=== PATIENT | male | born 1960 | race Caucasian/White ===

== ENCOUNTER → 2018-10-21 | Outpatient (CLI) | payer OTHER ==
--- NOTE | 2018-10-21 13:26 | NM ---
EXAMINATION TYPE: NM stress cardiolite complete DATE OF EXAM: 10/21/2018 COMPARISON: NONE HISTORY: Hypertension and chest pain TECHNIQUE: After the intravenous administration of 9.81 mCi Tc 99m Sestamibi - Rest images obtained 50 minutes post injection. The patient exercised using a CODIE protocol and 1 minute prior to peak exercise was injected with 24.7 mCi Tc 99m Sestamibi - Stress images obtained 10 minutes post injecti on. FINDINGS: Targeted heart rate was achieved during performance of the study. Review of stress and rest SPECT reji ges demonstrates no distinct perfusion abnormality. Gated analysis shows normal wall motion with an estimated left ventricular ejection fraction of 60 %. TID is within normal limits calculated at 1.04. IMPRESSION: No scintigraphic evidence for reversible ischemia
--- NOTE | 2018-10-22 06:54 | ECHOF ---
Referral Reason:I10 Hypertension, R07.9 Chest Pain MEASUREMENTS -------- HEIGHT: 177.8 cm WEIGHT: 98.4 kg BP: 120/78 RVIDd: 3.7 cm (< 3.3) IVSd: 1.1 cm (0.6 - 1.1) LVIDd: 5.2 cm (3.9 - 5.3) LVPWd: 1.1 cm (0.6 - 1.1) IVSs: 1.5 cm LVIDs: 3.6 cm LVPWs: 1.6 cm LA Diam: 4.0 cm (2.7 - 3.8) LAESV Index (A-L): 46.54 ml/m Ao Diam: 3.7 cm (2.0 - 3.7) AV Cusp: 2.5 cm (1.5 - 2.6) MV EXCURSION: 19.089 mm (> 18.000) MV EF SLOPE: 106 mm/s (70 - 150) EPSS: 0.4 cm AR PHT: 628 ms RAP: 5.00 mmHg RVSP: 24.97 mmHg FINDINGS -------- This was a technically adequate study. The left ventricular size is normal. There is borderline concentric left ventricular hypertrophy. Overall left ventricular systolic function is low-normal with, an EF between 50 - 55 %. The right ventricle is mild to moderately enlarged. LA is severely dilated >40 ml/m2 The right atrium is normal in size. Aortic valve is trileaflet and is mildly thickened. Trace to mild aortic regurgitation. Dawb-or-yitmkxwg mitral regurgitation is present. Mild tricuspid regurgitation present. Right ventricular systolic pressure is normal at < 35 mmHg. Trace/mild (physiologic) pulmonic regurgitation. The aortic root size is normal. Normal inferior vena cava with normal inspiratory collapse consistent with estimated right atrial pre ssure of 5 mmHg. The inferior vena cava is mildly dilated. There is a trivial pericardial effusion present. CONCLUSIONS -------- 1. This was a technically adequate study. 2. The left ventricular size is normal. 3. There is borderline concentric left ventricular hypertrophy. 4. The right ventricle is mild to moderately enlarged. 5. LA is severely dilated >40 ml/m2 6. The right atrium is normal in size. 7. Aortic valve is trileaflet and is mildly thickened. 8. Trace to mild aortic regurgitation. 9. Lclx-kw-mjfstrwv mitral regurgitation is present. 10. Mild tricuspid regurgitation present. 11. Right ventricular systolic pressure is normal at < 35 mmHg. 12. Trace/mild (physiologic) pulmonic regurgitation. 13. The aortic root size is normal. 14. Normal inferior vena cava with normal inspiratory collapse consistent with estimated right atrial pressure of 5 mmHg. 15. The inferior vena cava is mildly dilated. 16. There is a trivial pericardial effusion present. ASSEMBLER WET WASH: Ester Mccarthy RDCS
--- NOTE | 2018-10-22 10:26 | EST ---
EXERCISE STRESS AGE: 58 SEX: M HT: 71" WT: 216 PROTOCOL: Cardiolite Logan Stress Test STAGE: IV DURATION OF EXERCISE: 12:00 HEART RATE REST: 85 BLOOD PRESSURE REST: 135/91 MAXIMUM HEART RATE ACHIEVED: 176 MAXIMUM BLOOD PRESSURE: 174/68 85% MPHR: 136 100% MPHR: 160 METS: 12.3 INDICATIONS: Chest pain, hypertension. CLINICAL INFORMATION: Baseline EKG revealed normal sinus rhythm without significant ST-T changes. Patient walked for 12 minutes on a standard Logan protocol, achieved a maximum heart rate of 176 beats per minute which is more than 85% of predicted maximum. He developed some fatigue and shortness of breath. Rare isolated PVCs were noted. There was no evidence of any angina, arrhythmia or EKG changes to indicate ischemia. He had a short run of PAT during the exercise. However, in the recovery period, he had rare isolated PVCs. By EKG criteria, this is a negative stress test with excellent exercise capacity. The nuclear scan results which are more pertinent, will be reported by the radiologist. WAYNE / LEIN: [id number] /
== END | disposition home or self-care (01) ==
LOC: RADNMMAIN 07:32
PROVIDERS: ATTEND Family Medicine
DX: I08.3 Combined rheumatic disorders of mitral, aortic and tricuspid valves (principal); I31.3 Pericardial effusion (noninflammatory); R06.09 Other forms of dyspnea
CPT/HCPCS: 93017; 93306; 78452; A9500

== ENCOUNTER → 2019-08-02 | Outpatient (CLI) | payer OTHER ==
[2019-08-02 10:35] LABS: INR 1.1 (<1.2); Partial Thromboplastin Time 32.5 sec (22.0-30.0); Prothrombin Time 11.8 sec (9.0-12.0)
[2019-08-02 16:10] LABS: African American GFR (CKD) 75.2 (60.0-200.0); Albumin 4.5 g/dL (3.80-4.90); Albumin/Globulin Ratio 2.81 (1.60-3.17); Anion Gap 8.3 mmol/L (4.00-12.00); Calcium 9.5 mg/dL (8.7-10.3); Carbon Dioxide 25.7 mmol/L (21.6-31.8); Globulin 1.6 g/dL (1.6-3.3); Potassium 4.9 mmol/L (3.5-5.5); Total Bilirubin 1.6 mg/dL (0.3-1.2); Total Protein 6.1 g/dL (6.2-8.2)
== END | disposition home or self-care (01) ==
LOC: LABWHC1 09:32
PROVIDERS: ATTEND Internal Medicine
DX: Z01.810 Encounter for preprocedural cardiovascular examination (principal)
CPT/HCPCS: 36415; 80053; 85610; 85730

== ENCOUNTER → 2019-10-26 | Outpatient (CLI) | payer OTHER ==
--- NOTE | 2019-10-26 20:02 | CONS ---
CONSULTATION DATE OF SERVICE: 10/26/2019. HISTORY OF PRESENT ILLNESS/SLEEP-WAKE EVALUATION: This patient is a 59-year-old gentleman who has been evaluated in the sleep center for possible obstructive sleep apnea-hypopnea syndrome. The patient does not have a regular sleep schedule. 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 He does have problems with falling asleep. He wakes up from sleep up to 6 times with up to 6 episodes of nocturia. He does snore. Nobody ever told him about episodes of stopped breathing during sleep, although in the morning he wakes up tired. He worries about his sleep, has problems with memory, irritability, sometimes sexual dysfunction. Beresford Sleepiness Scale is significantly increased at 13. Usually he does not take naps, though. No history of hypnagogic hallucinations, sleep paralysis or cataplexy. PAST MEDICAL HISTORY: Positive for hypertension, hyperlipidemia, arterial fibrillation. PAST SURGICAL HISTORY: Tonsillectomy, right wrist surgery, right arm surgery, right shoulder surgery, defibrillation. SOCIAL HISTORY: Positive history of smoking on and off for 10 years and quit 4 years ago. Alcohol consumption occasional. REVIEW OF SYSTEMS: Multiple awakenings from sleep, sometimes sleepiness during the day. MEDICATIONS: Sotalol, , Norvasc, Zocor. FAMILY HISTORY: Hypertension, heart problems, hyperlipidemia, diabetes. PHYSICAL EXAMINATION: GENERAL: A pleasant gentleman without distress. VITAL SIGNS: BP 124/76, HR 56, RR 16, height 5 feet 9-1/2 inches, weight 230 pounds. Body mass index 33.4. Temperature 98.4, oxygen saturation at room air 96%. HEENT: PERRLA, EOMI. Evaluation of oropharynx showed tongue protrudes midline. Extremely low position of soft palate. Mallampati IV. Some restriction of nasal breathing. NECK: Supple. No JVD. Thyroid is not palpable. LUNGS: Clear to percussion and to auscultation. Good air exchange. No wheezing or rhonchi. HEART: S1, S2 regular. No murmurs, gallops or rubs. ABDOMEN: Slightly obese. EXTREMITIES: No clubbing or cyanosis. MANAGER SHELL: Awake, alert, and oriented X3. Cranial nerves 2 to 7 intact. There is no fasciculation or atrophy. noted. No focal deficits observed. IMPRESSION: 1. Snoring, multiple awakenings from sleep with nocturia, extremely low position of soft palate, wide neck at 17 inches in circumference, symptoms of excessive sleepiness with increasing Beresford Sleepiness Scale; obstructive sleep apnea- hypopnea syndrome. 2. Mild obesity; body mass index 33.4. 3. History of atrial fibrillation, status post defibrillation. Presently by auscultation sounds are regular. Heart tones regular. 4. Hypertension. 5. Hyperlipidemia. 6. Status post tonsillectomy. 7. Status post right wrist surgery. 8. Status post right arm surgery. 9. Status post right shoulder surgery. PLAN: 1. Polysomnography for evaluation of patient's breathing during sleep. 2. CPAP/BiPAP titration if sleep study confirms obstructive sleep apnea-hypopnea syndrome. 3. Preferable position during sleep on the side. 4. No driving if patient feels any sleepiness. 5. I will see patient for follow up visit to explain results of testing and following plan. Thank you very much for referring this patient for consultation. Sincerely, Luis Fernando Gil MD, PhD, FAASM Diplomat of [employer] [facility] [place] MMODL / IJN: [id number] /
== END | disposition home or self-care (01) ==
LOC: SLEEP 16:42
PROVIDERS: ATTEND Internal Medicine
DX: G47.33 Obstructive sleep apnea (adult) (pediatric) (principal); I10 Essential (primary) hypertension; E78.5 Hyperlipidemia, unspecified; E66.9 Obesity, unspecified; Z68.33 Body mass index [BMI] 33.0-33.9, adult; Z98.890 Other specified postprocedural states; Z87.891 Personal history of nicotine dependence; Z79.891 Long term (current) use of opiate analgesic; Z86.79 Personal history of other diseases of the circulatory system
CPT/HCPCS: 99211

== ENCOUNTER 2020-10-30 16:21 | Emergency (ER) | payer OTHER ==
[2020-10-30 16:29] VITALS: BP 134/85; PULSE 82; RESP 18; TEMP 98.4
[2020-10-30] MEDS ORDERED: PANTOPRAZOLE 40 MG/10 ML VIAL IVP STA (16:49)
[2020-10-30 17:24] LABS: Basophils # (A) 0.2 k/uL (0-0.2); Basophils % (A) 2 %; Eosinophils # (A) 0.3 k/uL (0-0.7); Eosinophils % (A) 3 %; HCT 41.5 % (39.0-53.0); HGB 14.6 gm/dL (13.0-17.5); Lymphocytes # (A) 2.8 k/uL (1.0-4.8); Lymphocytes % (A) 30 %; MCH 32.1 pg (25.0-35.0); MCHC 35.2 g/dL (31.0-37.0); MCV 91.2 fL (80.0-100.0); Mean Platelet Volume 7.2; Monocytes # (A) 0.6 k/uL (0-1.0); Monocytes % (A) 6 %; Neutrophils # (A) 5.5 k/uL (1.3-7.7); Neutrophils % (A) 58 %; Platelet Count 233 k/uL (150-450); RBC 4.56 m/uL (4.30-5.90); RDW 12.6 % (11.5-15.5); WBC 9.4 k/uL (3.8-10.6)
[2020-10-30 17:34] LABS: Partial Thromboplastin Time 25.1 sec (22.0-30.0)
[2020-10-30 17:42] LABS: Albumin 4.5 g/dL (3.5-5.0); Amylase 50 U/L (30-110); Chloride 106 mmol/L (98-107); Glucose 91 mg/dL (74-99); Total Protein 7.2 g/dL (6.3-8.2)
[2020-10-30 17:43] LABS: ALT 16 U/L (4-49); AST 20 U/L (17-59); African American GFR (CKD) >90 (>60 ml/min/1.73 sqM); Alkaline Phosphatase 81 U/L (38-126); Anion Gap 8 mmol/L; Blood Urea Nitrogen 17 mg/dL (9-20); Calcium 9.5 mg/dL (8.4-10.2); Carbon Dioxide 22 mmol/L (22-30); Lipase 123 U/L (23-300); Non-African American GFR(CKD) 80 (>60 ml/min/1.73 sqM); Sodium 136 mmol/L (137-145); Total Bilirubin 1.8 mg/dL (0.2-1.3)
[2020-10-30 18:43] LABS: Appearance,Urine Clear (Clear); Bilirubin,Urine Negative (Negative); Blood,Urine Negative (Negative); Color,Urine Light Yellow; Glucose,Urine (UA) Negative (Negative); Ketones,Urine Negative (Negative); Leukocyte Esterase,Urine Negative (Negative); Nitrite,Urine Negative (Negative); Protein,Urine Negative (Negative); Specific Gravity,Urine 1.014 (1.001-1.035)
--- NOTE | 2020-10-30 18:48 | ED ---
General Adult HPI - General Chief complaint: Abdominal Pain Stated complaint: Possible bleeding ulcer Time Seen by Provider: 10/30/20 16:43 Source: patient Mode of arrival: ambulatory Limitations: no limitations - History of Present Illness Initial comments: 60-year-old male with a past medical history of atrial fibrillation, hyperlipidemia, hypertension presents to the emergency room for a chief complaint of possible peptic ulcer. Patient states that Wednesday night he noticed some slight upset stomach. Sending morning he had black stools. States by Wednesday be started to improve but he called his doctor. His doctor was concerned he have an ulcer. Patient does take Xarelto for atrial fibrillation. His doctor wanted him to be evaluated. Patient denies any abdominal pain at this time. Denies chest pain or shortness of breath. Patient denies any lightheadedness or weakness.Patient has no other complaints at this time including shortness of breath, chest pain, abdominal pain, nausea or vomiting, headache, or visual changes. - Related Data Previous Rx's Medication Instructions Recorded Famotidine [Pepcid] 20 mg PO BID #30 tablet 10/30/20 Allergies Allergy/AdvReac Type Severity Reaction Status Date / Time Penicillins Allergy Unknown Verified 10/30/20 16:25 Childhood Review of Systems ROS Statement: Those systems with pertinent positive or pertinent negative responses have been documented in the HPI. ROS Other: All systems not noted in ROS Statement are negative. Past Medical History Past Medical History: Atrial Fibrillation, Hyperlipidemia, Hypertension History of Any Multi-Drug Resistant Organisms: None Reported Past Surgical History: Joint Replacement Additional Past Surgical History / Comment(s): R shoulder, R arm, R wrist Past Psychological History: Anxiety, PTSD Smoking Status: Former smoker Past Alcohol Use History: Occasional Past Drug Use History: None Reported General Exam Limitations: no limitations General appearance: alert, in no apparent distress Head exam: Present: atraumatic Eye exam: Present: normal appearance, PERRL, EOMI ENT exam: Present: normal exam, mucous membranes moist Neck exam: Present: normal inspection, full ROM. Absent: tenderness, meningismus, lymphadenopathy Respiratory exam: Present: normal lung sounds bilaterally. Absent: respiratory distress Cardiovascular Exam: Present: regular rate, normal rhythm, normal heart sounds GI/Abdominal exam: Present: soft, normal bowel sounds. Absent: distended, tenderness (No abdominal tenderness), guarding, rebound, rigid Rectal exam: Present: normal inspection, normal rectal tone, other (Floyd HERNÁNDEZ pre sent for exam). Absent: bloody stool Course Vital Signs 10/30/20 16:26 Temperature 98.4 F Pulse Rate 82 Respiratory 18 Rate Blood Pressure 134/85 O2 Sat by Pulse 97 Oximetry Medical Decision Making - Medical Decision Making Vitals are stable. Patient is well appearing. Physical exam is unremarkable. Abdomen is nontender. No gross blood noted on rectal exam. CBC unremarkable. Hemoglobin stable at 14.6. CMP unremarkable. Troponin is negative. Bilirubin of 1.8 which appears chronic. No right upper quadrant pain or fevers. Urinalysis is unremarkable. Occult blood is negative. That at this time there is no evidence for gastric bleeding. However he will be started on Pepcid given slight upset stomach and referred to GI for scope to confirm this. However if he develops black stools again he will return to the emergency room for further evaluation.I discussed this case with attending Dr. Balubena who agrees with this assessment and treatment plan. - Lab Data Result diagrams: 10/30/20 17:12 10/30/20 17:12 Lab Results 10/30/20 10/30/20 10/30/20 Range/Units 17:12 17:12 17:12 WBC 9.4 (3.8-10.6) k/uL RBC 4.56 (4.30-5.90) m/uL Hgb 14.6 (13.0-17.5) gm/dL Hct 41.5 (39.0-53.0) % MCV 91.2 (80.0-100.0) fL MCH 32.1 (25.0-35.0) pg MCHC 35.2 (31.0-37.0) g/dL RDW 12.6 (11.5-15.5) % Plt Count 233 (150-450) k/uL MPV 7.2 Neutrophils % 58 % Lymphocytes % 30 % Monocytes % 6 % Eosinophils % 3 % Basophils % 2 % Neutrophils # 5.5 (1.3-7.7) k/uL Lymphocytes # 2.8 (1.0-4.8) k/uL Monocytes # 0.6 (0-1.0) k/uL Eosinophils # 0.3 (0-0.7) k/uL Basophils # 0.2 (0-0.2) k/uL PT 11.0 (9.0-12.0) sec INR 1.0 (<1.2) APTT 25.1 (22.0-30.0) sec Sodium 136 L (137-145) mmol/L Potassium 4.0 (3.5-5.1) mmol/L Chloride 106 (98-107) mmol/L Carbon Dioxide 22 (22-30) mmol/L Anion Gap 8 mmol/L BUN 17 (9-20) mg/dL Creatinine 1.00 (0.66-1.25) mg/dL Est GFR (CKD-EPI)AfAm >90 (>60 ml/min/1.73 sqM) Est GFR (CKD-EPI)NonAf 80 (>60 ml/min/1.73 sqM) Glucose 91 (74-99) mg/dL Calcium 9.5 (8.4-10.2) mg/dL Total Bilirubin 1.8 H (0.2-1.3) mg/dL AST 20 (17-59) U/L ALT 16 (4-49) U/L Alkaline Phosphatase 81 (38-126) U/L Troponin I (0.000-0.034) ng/mL Total Protein 7.2 (6.3-8.2) g/dL Albumin 4.5 (3.5-5.0) g/dL Amylase 50 (30-110) U/L Lipase 123 (23-300) U/L Urine Color Urine Appearance (Clear) Urine pH (5.0-8.0) Ur Specific [place] (1.001-1.035) Urine Protein (Negative) Urine Glucose (UA) (Negative) Urine Ketones (Negative) Urine Blood (Negative) Urine Nitrite (Negative) Urine Bilirubin (Negative) Urine Urobilinogen (<2.0) mg/dL Ur Leukocyte Esterase (Negative) Stool Occult Blood (Negative) 10/30/20 10/30/20 10/30/20 Range/Units 17:12 18:20 Unknown WBC (3.8-10.6) k/uL RBC (4.30-5.90) m/uL Hgb (13.0-17.5) gm/dL Hct (39.0-53.0) % MCV (80.0-100.0) fL MCH (25.0-35.0) pg MCHC (31.0-37.0) g/dL RDW (11.5-15.5) % Plt Count (150-450) k/uL MPV Neutrophils % % Lymphocytes % % Monocytes % % Eosinophils % % Basophils % % Neutrophils # (1.3-7.7) k/uL Lymphocytes # (1.0-4.8) k/uL Monocytes # (0-1.0) k/uL Eosinophils # (0-0.7) k/uL Basophils # (0-0.2) k/uL PT (9.0-12.0) sec INR (<1.2) APTT (22.0-30.0) sec Sodium (137-145) mmol/L Potassium (3.5-5.1) mmol/L Chloride (98-107) mmol/L Carbon Dioxide (22-30) mmol/L Anion Gap mmol/L BUN (9-20) mg/dL Creatinine (0.66-1.25) mg/dL Est GFR (CKD-EPI)AfAm (>60 ml/min/1.73 sqM) Est GFR (CKD-EPI)NonAf (>60 ml/min/1.73 sqM) Glucose (74-99) mg/dL Calcium (8.4-10.2) mg/dL Total Bilirubin (0.2-1.3) mg/dL AST (17-59) U/L ALT (4-49) U/L Alkaline Phosphatase (38-126) U/L Troponin I <0.012 (0.000-0.034) ng/mL Total Protein (6.3-8.2) g/dL Albumin (3.5-5.0) g/dL Amylase (30-110) U/L Lipase (23-300) U/L Urine Color Light Yellow Urine Appearance Clear (Clear) Urine pH 6.0 (5.0-8.0) Ur Specific [place] 1.014 (1.001-1.035) Urine Protein Negative (Negative) Urine Glucose (UA) Negative (Negative) Urine Ketones Negative (Negative) Urine Blood Negative (Negative) Urine Nitrite Negative (Negative) Urine Bilirubin Negative (Negative) Urine Urobilinogen 2.0 (<2.0) mg/dL Ur Leukocyte Esterase Negative (Negative) Stool Occult Blood Negative (Negative) Disposition Clinical Impression: Gastritis Disposition: HOME SELF-CARE Condition: Good Instructions (If sedation given, give patient instructions): Gastroesophageal Reflux Disease (ED) Additional Instructions: Take Pepcid as directed. Please follow-up with your doctor in one to 2 days. You may follow up with GI as well. If you develop any worsening symptoms return to the emergency room. Prescriptions: Famotidine [Pepcid] 20 mg PO BID #30 tablet Is patient prescribed a controlled substance at d/c from ED?: No Referrals: Gino Marks MD [Primary Care Provider] - 1-2 days Devika Alas MD [STAFF PHYSICIAN] - 1-2 days Time of Disposition: 18:47
== END 2020-10-30 18:57 | disposition home or self-care (01) ==
LOC: EC 16:21
DX: K29.70 Gastritis, unspecified, without bleeding (principal); Z88.0 Allergy status to penicillin; Z87.891 Personal history of nicotine dependence; Z96.60 Presence of unspecified orthopedic joint implant
CPT/HCPCS: 36415; 93005; 80053; 82150; 83690; 84484; 85025; 85610; 85730; 82272; 81003; 99284; 96374; C9113

== ENCOUNTER 2021-10-17 06:56 | Day surgery (SDC) | payer OTHER ==
[2021-10-14 14:30] VITALS: BMI 30.9
[~2021-10-17 06:56] MED LIST: LACTATED RINGERS 1,000 ML IV SCH
[2021-10-17 07:21] VITALS: TEMP 98.1
[2021-10-17] MEDS ORDERED: LIDOCAINE 1% INJ 10MG/ML (20 ML MDV) ONE (08:04)
[2021-10-17] MEDS ORDERED: PROPOFOL 10 MG/ML 20 ML VIAL IV ONE (08:04)
--- NOTE | 2021-10-17 08:26 | P.PCN ---
Date of Procedure: 10/17/21 Procedure(s) Performed: Brief history: Patient is a pleasant scheduled for an elective upper endoscopy as well as colonoscopy as a part of evaluation of intermittent dark colored stools/history of and screening for colorectal neoplasia Procedure performed: Esophagogastroduodenoscopy with biopsy Colonoscopy snare polypectomy Preoperative diagnosis: GERD/intermittent dark colored stools Screening for colon cancer Anesthesia: MAC Procedure: After informed consent was obtained from the patient was brought into the endoscopy unit and IV sedation was administered by anesthesia under continuous monitoring. Initially upper endoscopy was done. The Olympus GF 160 video endoscope was inserted inserted into the mouth and esophagus intubated without any difficulty and was gradually advanced into the stomach and duodenum and carefully examined. The bulb and second part of the duodenum appeared normal. The scope was then withdrawn into the stomach adequately insufflated with air and upon careful examination the antrum and body, cardia and fundus appeared normal. The scope was then withdrawn into the esophagus. He was a small sliding type hiatal hernia noted. The GE junction was located at 40 cm to the incisors. There was evidence of Molina's esophagus in the distal esophagus extending from 38-40 cm from the incisors and biopsies were done from this area. The GE junction appeared regular with no erythema erosions or ulcerations. Rest of the esophagus appeared normal. Patient tolerated the procedure well. At this time the patient continued to remain sedation. Initial digital rectal examination was normal. Olympus CF 160 video colonoscope was then inserted into the rectum and gradually advanced to the cecum without any difficulty. Careful examination was performed as the scope was gradually being withdrawn. The prep was excellent. The cecum, ascending colon, be normal. In the proximal transverse colon there were 2 sessile polyps measuring 3 mm in size which were removed by cold biopsy. Adjacent to this area there was a 7 mm flat polyp removed by snare polypectomy. Rest of the transverse colon, descending colon, sigmoid colon and rectum appeared normal. Retroflexion was performed in the rectum and no lesions were noted. Patient tolerated the procedure well. Impression: 1. Upper endoscopy revealed small hiatal hernia and Molina's esophagus 2. ColRevealed 3 mm 2 and 7 mm sessile transverse colon polyp status post biopsy and snare polypectomy respectively Recommendations: Findings of this examination were discussed with the patient as well as his family. He was advised to follow with the biopsy results. He will continue with omeprazole 20 mg daily and follow antireflux measures. If the biopsy of Molina's esophagus does not show any evidence of dysplasia, he can have a repeat upper endoscopy in 3 years and or colonoscopy in 5 years.. Advised to resume Xarelto today. Continue with omeprazole 20 mg daily and follow antireflux measures.
[2021-10-17 08:35] VITALS: RESP 16
[2021-10-17 08:58] VITALS: BP 114/81; PULSE 71
== END 2021-10-17 09:29 | disposition home or self-care (01) ==
LOC: ORWHC2ENDO 06:56
PROVIDERS: ATTEND Internal Medicine Gastroenterology
DX: K22.70 Barrett's esophagus without dysplasia (principal); K21.9 Gastro-esophageal reflux disease without esophagitis; K44.9 Diaphragmatic hernia without obstruction or gangrene; D12.3 Benign neoplasm of transverse colon; K92.1 Melena; I10 Essential (primary) hypertension; E78.5 Hyperlipidemia, unspecified; Z79.899 Other long term (current) drug therapy; Z79.01 Long term (current) use of anticoagulants; Z88.0 Allergy status to penicillin
CPT/HCPCS: 88305; 45380; 45385; 43239; J2001; J2704

== ENCOUNTER → 2023-03-19 | Outpatient (CLI) | payer OTHER ==
--- NOTE | 2023-03-22 08:43 | CT ---
EXAMINATION TYPE: CT brain wo con DATE OF EXAM: 03/19/2023 COMPARISON: None HISTORY: 62-year-old male R51.9, TVA, headache TECHNIQUE: Examination was done in axial plane without intravenous contrast. Coronal and sagittal r econstructions performed. CT DLP: 1116.0 mGycm Automated exposure control for dose reduction was used. FINDINGS: There is no evidence of acute intracranial hemorrhage, acute ischemic changes, mass, mass-effect, or extra-axial fluid collection. There is no effacement of cerebral sulci or basal subarachnoid cister ns. There is no hydrocephalus. There is no midline shift. Warren-white matter distinction is preserv ed. Some possible abnormal hypodensity in the right ventral dell and two contiguous slices, axial image 2 3 and 24. This may relate to the skull base artifact. MRI brain without and with contrast could furth er evaluate. Mild mucosal thickening scattered within the left ethmoid air cells and floor of the left maxillary s inus. There is rightward nasal septal deviation noted. Orbits and globes are intact. Mastoid air cell s well pneumatized. IMPRESSION: 1. Possible abnormal hypodense focus in the right ventral dell. This could represent skull base artif act or old ischemic change or lacunar infarct. Other etiology not excluded at this time. Recommend fu rther evaluation with MRI without and with contrast. 2. Otherwise, no acute intracranial abnormality seen. 3. Mild chronic left ethmoid and left maxillary sinus disease.
== END | disposition home or self-care (01) ==
LOC: RADCTMAIN 16:27
DX: J32.0 Chronic maxillary sinusitis (principal); J32.2 Chronic ethmoidal sinusitis; M79.601 Pain in right arm; Z86.73 Personal history of transient ischemic attack (TIA), and cerebral infarction without residual deficits
CPT/HCPCS: 70450

== ENCOUNTER → 2023-03-31 | Outpatient (CLI) | payer OTHER ==
--- NOTE | 2023-04-01 08:58 | XR ---
EXAMINATION TYPE: XR shoulder complete 3 views RT, XR forearm 2 views RT, XR elbow 3 views complete R T DATE OF EXAM: 03/31/2023 Comparison: None Clinical History: 62-year-old male [id number] Findings: Right shoulder: Mild degenerative change at the AC joint. Inferior spurring encroaches onto the subacromial space. So me sclerosis at the greater tuberosity. Mild degenerative spurring at the glenohumeral joint. No acut e fracture, subluxation, or dislocation. Right elbow: Bony spurring in both medial and lateral epicondyles. No elbow joint effusion. Some spurring at the coronoid process and olecranon as well. No acute fracture, subluxation, dislocation. 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 De generative spurring along the volar distal radius at the wrist joint. Moderate degenerative change fi rst CMC joint. No acute fracture of the radius or ulna. Impression: 1. Right shoulder: Mild AC joint OA but with inferior spurring that may contribute to subacromial im pingement. Clinically correlate. Some bony changes suggesting chronic rotator cuff tendinopathy. Also , mild early degenerative change of the glenohumeral joint. 2. Right elbow: Bony spurring at the medial and lateral epicondyles suggesting common flexor origin a nd common extensor origin tendinosis. Some scattered minimal degenerative spurring. No acute osseous abnormality seen. 3. 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 Some osteo arthritic change at the volar wrist and base of the thumb. No acute osseous body seen.
== END | disposition home or self-care (01) ==
LOC: RADXRMAIN 18:13
DX: M19.011 Primary osteoarthritis, right shoulder (principal); M19.031 Primary osteoarthritis, right wrist; S52.612A Displaced fracture of left ulna styloid process, initial encounter for closed fracture; M25.721 Osteophyte, right elbow; X58.XXXA Exposure to other specified factors, initial encounter

== ENCOUNTER → 2025-01-10 | Outpatient (CLI) | payer OTHER ==
[2025-01-10 15:04] LABS: MCH 31.3 pg (27.0-32.0); MCHC 33.3 g/dL (32.0-37.0); MCV 93.9 FL (80.0-97.0); Mean Platelet Volume 10.3 FL (9.5-12.2); NRBC Per 100 WBC 0 X 10*3/uL (0.00-0.01); Platelet Count 261 X 10*3/uL (140-440); RBC 4.79 X 10*6/uL (4.40-5.60); RDW 12.8 % (11.5-14.5); WBC 11.98 X 10*3/uL (4.50-10.00)
[2025-01-10 15:10] LABS: Blood Urea Nitrogen 11.4 mg/dL (9.0-27.0); Carbon Dioxide 26.3 mmol/L (21.6-31.8); Chloride 103 mmol/L (96-109); Potassium 4.8 mmol/L (3.5-5.5); Sodium 141 mmol/L (135-145)
== END | disposition home or self-care (01) ==
LOC: LABPAT 12:42
PROVIDERS: ATTEND Internal Medicine Cardiovascular Disease
DX: Z01.812 Encounter for preprocedural laboratory examination (principal); I48.19 Other persistent atrial fibrillation; I47.20 Ventricular tachycardia, unspecified; I49.3 Ventricular premature depolarization
CPT/HCPCS: 80051; 82565; 84520; 85027

== ENCOUNTER 2025-01-11 07:18 | Day surgery (SDC) | payer OTHER ==
[2025-01-09 16:47] VITALS: BMI 32.7
[~2025-01-11 07:18] MED LIST changes: +ALPRAZolam 0.25 MG TAB PO PRN; +ALPRAZolam 0.5 MG TAB PO PRN; -LACTATED RINGERS 1,000 ML IV SCH; +NITROGLYCERIN SL TABS 0.4 MG TAB SUBLINGUAL PRN
[2025-01-11] MEDS: SODIUM CHLORIDE 0.9% 1,000 ML in EMPTY BAG 1 BAG IV SCH ×2 (07:43→11:56)
[2025-01-11] MEDS: ASPIRIN 325 MG TAB PO STA (07:43)
[2025-01-11] MEDS: IV FLUID CONTINUATION 1,000 ML IV ONE (08:11)
[2025-01-11] MEDS: HEPARIN SODIUM,PORCINE (1 ML) 2,500 UNIT in SODIUM CHLORIDE 0.9% 250 ML IRRIGATION PRN (08:40)
[2025-01-11] MEDS: HEPARIN SODIUM,PORCINE 10,000 UNIT in SODIUM CHLORIDE 0.9% 1,000 ML IRRIGATION PRN (08:40)
[2025-01-11] MEDS: MIDAZOLAM 2 MG/2 ML VIAL IVP ONE ×3 (09:03→10:09)
[2025-01-11] MEDS: fentaNYL (PF) 50 MCG/1 ML VIAL IVP ONE (09:03)
[2025-01-11] MEDS: LIDOCAINE 1% INJ 10MG/ML (20 ML MDV) SQ ONE (09:05)
[2025-01-11] MEDS: VERAPAMIL SYRINGE (5 MG/10 ML) INTRAARTER ONE (09:13)
[2025-01-11] MEDS: HEPARIN SODIUM 1,000 UN/ML (10ML VL) IVP ONE (09:15)
[2025-01-11] MEDS: IOPAMIDOL-370 100ML BTL INJ ONE ×4 (09:55→10:45)
[2025-01-11] MEDS: CLOPIDOGREL 75 MG TAB PO ONE (10:00)
[2025-01-11] MEDS: NITROGLYCERIN 1000MCG/10ML SYRINGE INTRACORON ONE (10:21)
[2025-01-11] MEDS: HEPARIN SODIUM 1,000 UN/ML (10ML VL) IV ONE (10:55)
[2025-01-11] MEDS ORDERED: RX INFO: IV CONTRAST WAS GIVEN 1 EACH MISC MISCELLANE PRN (10:59)
[2025-01-11] MEDS ORDERED: ZOLPIDEM 5 MG TAB PO PRN (10:59)
[2025-01-11] MEDS ORDERED: NITROGLYCERIN SL TABS 0.4 MG TAB SUBLINGUAL PRN (10:59)
[2025-01-11] MEDS ORDERED: MAG HYDROX/AL HYDROX/SIMETH 30 ML CUP PO PRN (10:59)
[2025-01-11] MEDS ORDERED: ATROPINE SULFATE 0.1 MG/ML 10ML SYRINGE IV PRN (10:59)
--- NOTE | 2025-01-11 11:07 | P.CARDCATH ---
Date of Procedure: 01/11/25 Description of Procedure: PERCUTANEOUS TRANSLUMINAL CORONARY ANGIOPLASTY CLINICAL INFORMATION: The patient is a 64-year-old male with a known history of persistent atrial fibrillation, hypertension and hyperlipidemia who has been having episodes of recurrent ventricular tachycardia, he underwent cardiac ca theterization by Dr. Alas and subselective images of the LAD showed evidence of significant obstructive disease in the proximal segment. Recommendations were made regarding angioplasty and stenting. The procedure as well as the risks and the complications were discussed with the patient who was in full understanding and agreement. PROCEDURE: A 6 Macanese CLS 3.5 guiding catheter was introduced into the system. After cannulating the left main, a 0.014 BMW J-wire was advanced across the lesion and positioned distally. Attempt to advance another wire into the diagonal branch were unsuccessful. Following that a 2.5 x 12 mm trek balloon was advanced and inflated at 10 atmosphere. After removing the balloon a Power [place] eye IVUS catheter was introduced and revealed mild to moderate kristen cification with a distal lumen measuring 3.25 to 3.5 mm in diameter and proximally for 4.5 mm in diameter. Following that a 3.25 x 23 mm Xience luz mar[place] point stent was deployed. It was dilated at 16 rukhsana. Repeat IVUS imaging was performed and revealed under deployment proximally. A 4.0 x 15 mm NC trek balloon was advanced and 2 inflations proximally were performed. Repeat IVUS imaging was performed. After removing the catheter a 3.0 x 33 mm Xience luz mar[place] point stent was deployed in the mid segment with overlapping to the proximal stent at 16 rukhsana. Repeat IVUS imaging was performed and subsequently a 3.5 x 20 mm NC trek balloon was advanced and inflation in the distal and proximal stent were performed and subsequently a 4.5 x 8 mm NC trek balloon was advanced in the proximal stent and 1 inflation at 10 rukhsana was done. After the last inflation, after appropriate wait, the balloon and the guidewire were withdrawn back into the guiding catheter. Images were obtained and repeated. Those images reveal stable successful stenting. At that point, the guiding catheter, the balloon, and guidewire were removed. The sheath was removed. Hemostasis was obtained with deployment of a TR band. There were no immediate complications. The patient was returned to the room in stable condition. Of note, the patient received 5000 units of heparin as well as Plavix. His ACT was followed. There was no immediate complications. He had EKG changes and chest discomfort during the procedure, his EKG changes resolved and his chest discomfort improved. He had chronic back pain related to being on the table. RESULTS: Successful stenting of the proximal and mid LAD with reduction of stenosis from 90% to less than 5% with IVUS imaging and GALA-3 flow, there was occlusion of the diagonal branch that was small to moderate in caliber. RECOMMENDATIONS: The patient will continue on aspirin and clopidogrel for 1 week then the aspirin will be stopped and he will be continued on Xarelto and clopido grel for at least 6 months in addition to aggressive coronary risks modifications, maintaining LDL below 70 mg/dL. The findings and recommendations were discussed with the patient and the family, they are in full understanding and agreement. Duration of sedation: 54 minutes
[2025-01-11] MEDS: ISOSORBIDE MONONITRATE ER 30 MG TAB.ER.24H PO SCH (11:54)
[2025-01-11] MEDS: MIDAZOLAM 2 MG/2 ML VIAL IV ONE (12:14)
--- NOTE | 2025-01-11 12:42 | CT ---
EXAMINATION TYPE: CT brain wo con DATE OF EXAM: 01/11/2025 12:03 PM COMPARISON: 03/19/2023. CLINICAL INDICATION: Male, 64 years old with history of altered mental status, post cath ,afib hx, am s post heart cath TECHNIQUE: Brain: Axial CT images of the brain were obtained with coronal and sagittal reformats created and rev iewed. Contrast used: None. Oral contrast used: None. CT DLP: 2301 mGycm, Automated exposure control for dose reduction was used. FINDINGS: Brain: Extra-axial spaces: No abnormal extra-axial fluid collections. Ventricular system: Within normal limits Cerebral parenchyma: No acute intraparenchymal hemorrhage or mass effect. The vivas-white junction is well differentiated. Cerebellum: Unremarkable. Mass effect: No evidence of midline shift. Intracranial vasculature: Atherosclerotic calcifications of the intracranial vessels. Soft tissues: Normal. Calvarium/osseous structures: No depressed skull fracture. Paranasal sinuses and mastoid air cells: Mild scattered paranasal sinus disease. Visualized orbits: Bilateral aphakia IMPRESSION: No acute intracranial process. [facility], , 01/11/2025 12:40 PM
[2025-01-11] MEDS ORDERED: MORPHINE SULFATE 2 MG/ML SYRINGE IVP STA (13:05)
[2025-01-11] MEDS: MORPHINE SULFATE 4 MG/ML SYRINGE IVP STA (13:26)
[2025-01-11] MEDS: ACETAMINOPHEN TAB 325 MG TAB PO PRN (16:16)
[2025-01-11] MEDS: HYDROmorphone 0.5 MG/0.5 ML SYRINGE IVP STA (17:55)
[2025-01-11] MEDS: NITROGLYCERIN OINT 1 INCH/GM PACKET TOPICAL SCH (17:55)
[2025-01-11] MEDS: ONDANSETRON 4 MG/2 ML VIAL IVP STA (19:30)
[2025-01-11 21:12] LABS: African American GFR (CKD) >90 (>60 ml/min/1.73 sqM); Anion Gap 8 mmol/L; Blood Urea Nitrogen 14 mg/dL (9-20); Calcium 8.9 mg/dL (8.4-10.2); Carbon Dioxide 21 mmol/L (22-30); Chloride 106 mmol/L (98-107); Glucose 132 mg/dL (74-99); Magnesium 1.9 mg/dL (1.6-2.3); Non-African American GFR(CKD) >90 (>60 ml/min/1.73 sqM); Sodium 135 mmol/L (137-145)
--- NOTE | 2025-01-11 21:27 | US ---
EXAMINATION TYPE: US carotid duplex BILAT DATE OF EXAM: 01/11/2025 Exam done portable COMPARISON: NONE CLINICAL INDICATION: Male, 64 years old with history of TIA; FINDINGS: EXAM MEASUREMENTS: RIGHT: Peak Systolic Velocity (PSV) cm/sec ----- Right CCA: 48.1 ----- Right ICA: 91.1 ----- Right ECA: 116.8 ICA/CCA ratio: 1.9 RIGHT: End Diastole cm/sec ----- Right CCA: 11.1 ----- Right ICA: 19.1 ----- Right ECA: 7.2 LEFT: Peak Systolic Velocity (PSV) cm/sec ----- Left CCA: 87.4 ----- Left ICA: 67.0 ----- Left ECA: 71.1 ICA/CCA ratio: 0.8 LEFT: End Diastole cm/sec ----- Left CCA: 19.7 ----- Left ICA: 17.7 ----- Left ECA: 9.7 VERTEBRALS (direction of flow): Right Vertebral: Antegrade Left Vertebral: Antegrade Rhythm: Arrhythmia IMPRESSION: Moderate atherosclerotic plaque within the left carotid bulb with mild atherosclerotic plaque within the right carotid bulb. Right: Less than 50% stenosis of the carotid bifurcation. Left: Less than 50% stenosis of the carotid bifurcation. Criteria for Assigning % of Stenosis / Diameter reduction (Estimation based on the indirect measurements of the internal carotid artery velocities (ICA PSV). 1. Normal (no stenosis)=ICA PSV < 180 cm/s: ratio < 2.0: ICA EDV<40 cm/s. 2. Less than 50% stenosis=ICA PSV < 180 cm/s: ratio < 2.0: ICA EDV<40 cm/s. 3. 50 to 69% stenosis=ICA PSV of 180 to 230 cm/s: ration 2.0 ? 4.0: ICA EDV 40-100 cm/s. PSV 125-180 cm/sec and ICA/CCA PSV Ratio ? 2.0 is also consistent with 50-69% stenosis 4. Greater than 70% stenosis to near occlusion= ICA PSV > 230 cm/s: ratio > 4.0: ICA EDV > 100 cm/s. 5. Near occlusion= ICA PSV velocities may be low or undetectable: variable ratio and ICA EDV. 6. Total occlusion=unable to detect flow. [facility], , 01/11/2025 9:24 PM
[2025-01-12 02:52] VITALS: RESP 16
[2025-01-12] MEDS: PANTOPRAZOLE 40 MG TABLET PO SCH (06:24)
--- NOTE | 2025-01-12 07:35 | P.PN ---
Subjective Progress Note Date: 01/12/25 PROGRESS NOTE The patient is a 64-year-old male with a history of permanent atrial fibrillation, hypertension hyperlipidemia who had episodes of nonsustained VT. He underwent coronary angiography by Dr. Alas and was found to have obstructive disease in the proximal and mid LAD. He underwent stenting of both vessels. He had closure of a diagonal branch. Clinically he is doing well this morning, ambulating without difficulties. He denies any dyspnea. His back discomfort has resolved. He has minimal chest discomfort, not exertional. He continues to be in atrial fibrillation with controlled ventricular response. He had a brief episode after the cardiac catheterization where he had speech disturbance related to resolve very quickly. His CT scan of the head showed no evidence of any significant abnormalities. Medications: Aspirin, Plavix 75 mg daily, amlodipine 10 mg daily, Lipitor 40 mg daily, isosorbide mononitrate 30 mg daily PHYSICAL EXAMINATION: Blood pressure 106/60 heart rate 80 LUNGS: Clear to auscultation HEART: Irregular rate and rhythm, S1, S2. No S3. Systolic ejection murmur ABDOMEN: Soft, nontender, no organomegaly EXTREMETIES: No edema, right radial pulse intact LAB: Potassium 4.0, BUN 14, creatinine 0.85 IMPRESSION: 1. Status post stenting of the proximal and mid LAD 2. Permanent atrial fibrillation 3. Hypertension 4. Hyperlipidemia PLAN: 1. Continue present therapy 2. Increase physical activity 3. Discharge home today 4. Continue clopidogrel and Xarelto and stop aspirin after week Objective - Vital Signs Vital signs: Vital Signs Temp 97.1 F L 01/11/25 23:19 Pulse 80 01/12/25 04:05 Resp 16 01/12/25 04:05 BP 106/68 01/12/25 04:05 Pulse Ox 97 01/12/25 04:05 FiO2 Intake & Output 01/11/25 01/12/25 01/12/25 18:59 06:59 18:59 Intake Total 1000 Balance 1000 Weight 103.4 kg Intake: IV 1000 Other: Voiding Method Toilet - Labs CBC & Chem 7: 01/11/25 20:36 Labs: Abnormal Lab Results - Last 24 Hours (Table) 01/11/25 Range/Units 20:36 Sodium 135 L (137-145) mmol/L Carbon Dioxide 21 L (22-30) mmol/L Glucose 132 H (74-99) mg/dL
[2025-01-12] MEDS: ASPIRIN 81 MG PO SCH (08:00)
[2025-01-12] MEDS: CLOPIDOGREL 75 MG TAB PO SCH (08:00)
[2025-01-12] MEDS: RIVAROXABAN 20 MG TAB PO SCH (08:00)
[2025-01-12] MEDS: ATORVASTATIN 40 MG TAB PO SCH (08:00)
[2025-01-12] MEDS: amLODIPine 10 MG TAB PO SCH (08:00)
[2025-01-12 08:06] VITALS: BP 114/66; PULSE 84; TEMP 98
--- NOTE | 2025-01-12 08:19 | CC ---
CARDIAC CATHETERIZATION REPORT HISTORY OF PRESENT ILLNESS: This is a 64-year-old gentleman with history of atrial fibrillation, frequent PVCs, including multiple runs of nonsustained VT that I referred to EP for ablation. 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 Dr. Atkins who evaluated the patient, wanted to do EP study and ablation of the VT. He however advised the patient to undergo cardiac catheterization to rule out significant occlusive disease. Due to this, patient was advised to undergo cardiac catheterization and he understood risks and benefits. PROCEDURE NOTE: After obtaining informed consent, left heart catheterization and coronary angiogram were performed via the right radial artery using standard Jeromy catheters. The patient tolerated the procedure without any obvious immediate complications. Right radial artery access was obtained using Seldinger technique, 6-Palauan sheath was placed. Catheters and wires were floated into the ascending aorta under fluoroscopic guidance. The patient received verapamil and heparin per protocol. Left coronary artery: I could not visualize the LAD selectively and I went through multiple catheter changes including 3.5, 4, and 4.5 left Jeromy catheters, only in one subselective view I could see the LAD and it seemed to have significant disease in its midportion. I also performed an aortogram initially to locate the LAD origin. Because of my inability to visualize the LAD clearly, I asked Dr. Costa, the on-call stonehand, to complete the diagnostic angiogram and if necessary proceed with intervention. FINDINGS: 1. Hemodynamics: Left ventricular end-diastolic pressure is 10-12 mm. There is no significant gradient across the aortic valve. 2. Left ventriculogram: Left ventriculogram was not performed. 3. Aortogram: Aortogram was done to visualize the LAD. I could not clearly visualize it. 4. Angiographic data: a.Right coronary artery is a small nondominant vessel and is free of significant stenosis. b.Left coronary system appears calcified. I have repeatedly selectively engaged the circumflex coronary artery which is a large dominant vessel and gives off a fair caliber OM branch that has a 50% to 60% stenosis in the proximal portion. LAD was subselectively visualized and seemed to have significant disease in the midportion. CONCLUSIONS: 1. Suboptimal visualization of the LAD. 2. Nondominant right coronary artery. 3. 50-60% stenosis involving the OM branch. PLAN: Dr. Costa is going to engage the LAD more selectively and if necessary perform intervention. MMODL / IJN: [id number] /
--- NOTE | 2025-01-12 09:39 | P.CNNES ---
History of Present Illness Consult date: 01/11/25 Requesting physician: Josh Alas Reason for Consult: mis-pronouncing words after heart cath, hx of afib. History of Present Illness: Patient is a 64-year-old right-handed male came to the hospital for elective cardiac cath. Patient underwent procedure today, which revealed successful stenting of the proximal and mid LAD with reduction of stenosis from 90% to less than 5% with IVUS imaging and GALA-3 flow. There was occlusion of the diagonal branch that was small to moderate in caliber. Patient was recommended to be continued on aspirin and clopidogrel for 1 week and then aspirin will be stopped and he will be continued on Xarelto and clopidogrel for at least 6 months in addition to aggressive coronary risk modifications, maintaining LDL below 70 mg/dL. Patient states that right after the procedure, he developed trouble finding words but there was no slurring of speech. When he was trying to speak, different words were coming out. He denied any other focal symptoms with it like numbness tingling weakness, visual disturbance or facial droop. This speech difficulty lasted for about 5-10 minutes and then went away. However subsequently started having chest tightness for which he received Nitropaste and Dilaudid 0.5 mg (about 20 minutes ago). Since that he has been having nausea, v omiting. Patient states he has had a headache most of the day and Tylenol has not helped. Patient states that in general he wakes up with a headache 2-3/10, which stays with him for most of the day and goes away by and of the area around 7 PM. This has been going on for last 5 years. His headache today was more than his usual headache, dating 7/10. It involved above eyes and back of the head. Patient states that he has atrial fibrillation, and was on Xarelto, which was stopped 2 days prior to arrival. The last dose he received was on 01/08/2025 at 7 AM. Patient does not take any antiplatelet medication at home. He did take 4 aspirins this morning prior to his procedure as was recommended by the distillation operator helper. He is also scheduled for cardiac ablation in the future.. CT head showed no acute intracranial process. I personally reviewed CT head, agree with the findings.Patient's blood test shows WBC 11.98, normal hemoglobin and platelets. PT PTT normal, basic metabolic panel is normal. Patient's home medications include simvastatin 40 mg, Xarelto 20 mg, amlodipine 10 mg, aspirin 81 mg and omeprazole. Patient has history of hypertension, hyperlipidemia. Denies diabetes. He has smoked half pack per day off and on for 10 years, quit in 2015. He drinks 6 beers a week. No marijuana use. He currently works as a pole truck driver. Patient has PTSD. Review of Systems All pertinent positive and negative review of systems mentioned in the HPI. Otherwise unremarkable. Past Medical History Past Medical History: Atrial Fibrillation, Hyperlipidemia, Hypertension Additional Past Medical History / Comment(s): was having black stools interm ittiently History of Any Multi-Drug Resistant Organisms: None Reported Past Surgical History: Orthopedic Surgery Additional Past Surgical History / Comment(s): R shoulder, R arm, R wrist Past Anesthesia/Blood Transfusion Reactions: No Reported Reaction Past Psychological History: Anxiety, PTSD Smoking Status: Former smoker Past Alcohol Use History: Occasional Additional Past Alcohol Use History / Comment(s): quit smoking 2015,smoked on and off Past Drug Use History: None Reported - Past Family History Mother Family Medical History: No Reported History Medications and Allergies Home Medications Medication Instructions Recorded Confirmed Type Omeprazole [PriLOSEC] 20 mg PO DAILY 10/14/21 01/09/25 History Rivaroxaban [Xarelto] 20 mg PO DAILY 10/14/21 01/11/25 History amLODIPine BESYLATE 10 mg PO DAILY 10/14/21 01/09/25 History Aspirin [Adult Low Dose Aspirin EC] 81 mg PO DAILY 01/09/25 01/11/25 History Atorvastatin [Lipitor] 40 mg PO DAILY #90 tab 01/12/25 Rx Clopidogrel [Plavix] 75 mg PO DAILY #90 tab 01/12/25 Rx Isosorbide Mononitrate ER [Imdur] 30 mg PO DAILY #90 tab 01/12/25 Rx Nitroglycerin Sl Tabs [Nitrostat] 0.4 mg SUBLINGUAL Q5M PRN #25 tab 01/12/25 Rx Allergies Allergy/AdvReac Type Severity Reaction Status Date / Time Penicillins Allergy Unknown Verified 01/11/25 07:33 Childhood Physical Examination - Vital Signs Vital Signs: Vital Signs Temp Pulse Resp BP BP Pulse Ox 01/11/25 16:23 97.6 F 90 16 123/65 95 01/11/25 15:07 86 16 111/63 94 L 01/11/25 14:52 82 16 112/56 93 L 01/11/25 13:52 71 16 96/58 97 01/11/25 13:22 82 16 129/71 96 01/11/25 12:52 70 16 141/86 98 01/11/25 12:37 78 16 134/85 98 01/11/25 12:22 72 16 148/85 95 01/11/25 12:07 88 16 144/94 100 01/11/25 11:55 78 16 150/86 100 01/11/25 11:50 88 16 138/82 100 01/11/25 11:18 84 16 129/66 100 01/11/25 11:13 86 16 123/76 100 01/11/25 07:40 98.2 F 83 16 165/74 158/76 93 L Intake and Output 01/11/25 01/11/25 01/11/25 06:59 14:59 22:59 Intake Total 1000 Balance 1000 Intake: IV 1000 Other: Weight 103.4 kg 103.4 kg Patient is an elderly male, in no acute distress. Patient is having nausea, sweating, using cold cloth. Patient is alert awake oriented to time place and person. Speech and language functions are normal. Patient can name and repeat very well. No aphasia or dysarthria. Attention, concentration and fund of knowledge is adequate. On cranial nerve examination, pupils are equal, round and reacting to light, visual perkins are full on confrontation, with no neglect on double simultaneous stimulation. Extraocular muscles are intact with no nystagmus. Face is symmetric, tongue protrudes to the midline. Palatal elevation and sensation normal, hearing and shoulder shrug normal, facial sensation normal. On muscle strength testing, there is no pronator drift and the strength is normal in arms and legs distally and proximally. Deep tendon reflexes are symmetric 1 at the biceps, 1 brachioradialis, 2 at the knees, trace ankles and plantars downgoing. Sensory to touch is equal with no neglect on double simultaneous stimulation. Cerebellar function showed no ataxia for [id number] testing. No dysdiadochokinesia. No ataxia for [id number] testing on either side. Tone and bulk of muscles normal. Gait deferred.. On general examination, there is no carotid bruit or murmur, S1-S2 audible. Chest is clear on consultation. Abdomen is soft nontender. No organomegaly, bowel sounds present. Peripheral pulses are present. No peripheral edema. Results - Laboratory Findings CBC and BMP: 01/11/25 20:36 Assessment and Plan Assessment: * Probable TIA manifesting with transient expressive aphasia, that resolved in 5-10 minutes. Current neurological examination is normal. NIH stroke scale 0. Patient not a candidate for TNK, as his symptoms have resolved. * Coronary artery disease, status post cardiac stenting * Permanent atrial fibrillation * Hypertension * Hyperlipidemia * X tobacco use * History of PTSD Plan: * Patient had a TIA, symptoms have resolved. * Check carotid Dopplers rule out stenosis. * Hemoglobin A1c * Lipid panel. Patient on simvastatin 40 mg at home. * Patient has been resumed on Xarelto 20 mg daily for atrial fibrillation. * Patient will also be on DAPT with aspirin 81 mg and Plavix 75 mg for 1 week. Thereafter he will stop aspirin and continue Plavix. * Cardiology on board for chest tightness. * We will follow. Thank you for the consult. Addendum: Carotid Doppler revealed less than 50% stenosis of bilateral carotid bifurcations. Moderate atherosclerotic plaque within the left carotid bulb, with mild atherosclerotic plaque within the right carotid bulb. Antegrade flow in both vertebral arteries. Neurologically clear, if cleared by cardiology.
[2025-01-12 10:59] LABS: Chol/HDL Ratio 3.05 Ratio; VLDL Calculation 18.82 mg/dL (5.00-40.00)
== END 2025-01-12 11:25 | disposition home or self-care (01) ==
LOC: CATHCVL 07:18 → 3SCARD 10:40 → 6NMEDSUR 10:40 → CATHCVL 10:40
PROVIDERS: ATTEND Internal Medicine Cardiovascular Disease
DX: I25.10 Atherosclerotic heart disease of native coronary artery without angina pectoris (principal); I48.21 Permanent atrial fibrillation; I34.0 Nonrheumatic mitral (valve) insufficiency; I47.20 Ventricular tachycardia, unspecified; E78.5 Hyperlipidemia, unspecified; I10 Essential (primary) hypertension; F43.10 Post-traumatic stress disorder, unspecified; Z87.891 Personal history of nicotine dependence; Z95.5 Presence of coronary angioplasty implant and graft; Z86.73 Personal history of transient ischemic attack (TIA), and cerebral infarction without residual deficits; Z71.82 Exercise counseling; Z88.0 Allergy status to penicillin; Z79.82 Long term (current) use of aspirin; Z79.01 Long term (current) use of anticoagulants; Z79.02 Long term (current) use of antithrombotics/antiplatelets; Z79.899 Other long term (current) drug therapy
CPT/HCPCS: 99152; 99153; 92978; 93458; 93567; 80061; 80048; 83735; 83036; 93880; 70450; C9600; C1769 ×2; C1894; C1725 ×4; C1753; C1874 ×2; C1887; J2250; J2270; J1644 ×3; J2405; J2003; J1171; Q9967; J3010; J2305

== ENCOUNTER → 2025-02-15 | Outpatient (CLI) | payer OTHER ==
[2025-02-15 18:32] LABS: Blood Urea Nitrogen 14.5 mg/dL (9.0-27.0); Carbon Dioxide 23.5 mmol/L (21.6-31.8); Chloride 103 mmol/L (96-109); Potassium 4.3 mmol/L (3.5-5.5); Sodium 139 mmol/L (135-145)
[2025-02-15 18:43] LABS: HCT 42.8 % (39.6-50.0); HGB 14.2 g/dL (13.0-17.0); MCH 30.9 pg (27.0-32.0); MCHC 33.2 g/dL (32.0-37.0); MCV 93.2 FL (80.0-97.0); NRBC Per 100 WBC 0 X 10*3/uL (0.00-0.01); Platelet Count 249 X 10*3/uL (140-440); RBC 4.59 X 10*6/uL (4.40-5.60); RDW 12.8 % (11.5-14.5); WBC 10.88 X 10*3/uL (4.50-10.00)
== END | disposition home or self-care (01) ==
LOC: LABPAT 13:53
PROVIDERS: ATTEND Internal Medicine Clinical Cardiac Electrophysiology
DX: Z01.812 Encounter for preprocedural laboratory examination (principal); I47.20 Ventricular tachycardia, unspecified; I49.3 Ventricular premature depolarization
CPT/HCPCS: 80051; 82565; 84520; 85027

== ENCOUNTER 2025-02-19 09:23 | Day surgery (SDC) | payer OTHER ==
[2025-02-19] MEDS: IV FLUID CONTINUATION 1,000 ML IV ONE (09:56)
[2025-02-19] MEDS: SODIUM CHLORIDE 0.9% 1,000 ML IV SCH (10:08)
[2025-02-19 10:11] LABS: Basophils # (A) 0.09 10*3/uL (0.00-0.10); Eosinophils # (A) 0.16 10*3/uL (0.04-0.35); Eosinophils % (A) 1.7 %; HGB 14.7 g/dL (13.0-17.0); Lymphocytes # (A) 1.76 10*3/uL (0.90-5.00); Lymphocytes % (A) 18.8 %; MCH 32.2 pg (27.0-32.0); MCV 91.9 fL (80.0-97.0); Mean Platelet Volume 10.2 fL (9.5-12.2); Monocytes # (A) 1.06 10*3/uL (0.20-1.00); Monocytes % (A) 11.3 %; Neutrophils # (A) 6.25 10*3/uL (1.80-7.70); Neutrophils % (A) 66.8 %; Platelet Count 213 10*3/uL (140-440); RBC 4.57 10*6/uL (4.40-5.60); RDW 12.7 % (11.5-14.5); WBC 9.36 10*3/uL (4.50-10.00)
[2025-02-19 10:51] LABS: African American GFR (CKD) 88 (>60 ml/min/1.73 sqM); Anion Gap 11 mmol/L; Blood Urea Nitrogen 16 mg/dL (9-20); Carbon Dioxide 23 mmol/L (22-30); Chloride 104 mmol/L (98-107); Glucose 96 mg/dL (74-99); Non-African American GFR(CKD) 77 (>60 ml/min/1.73 sqM); Potassium 4.4 mmol/L (3.5-5.1); Sodium 138 mmol/L (137-145)
[2025-02-19] MEDS ORDERED: HEPARIN SODIUM,PORCINE 10,000 UNIT/ML 1 ML VIAL ONE (12:18)
[2025-02-19] MEDS ORDERED: HEPARIN SODIUM,PORCINE 5,000 UNIT/ML 1 ML VIAL ONE (12:18)
[2025-02-19] MEDS ORDERED: fentaNYL (PF) 50 MCG/ML 2 ML AMP ONE (12:18)
[2025-02-19] MEDS ORDERED: ISOPROTERENOL 250 MCG/1.25 ML SYR IV ONE (12:18)
[2025-02-19] MEDS ORDERED: diphenhydrAMINE 50 MG/ML 1 ML VIAL ONE (12:18)
[2025-02-19] MEDS ORDERED: PROPOFOL 10 MG/ML 20 ML VIAL IV ONE (12:18)
[2025-02-19] MEDS ORDERED: MIDAZOLAM 2 MG/2 ML VIAL ONE (12:18)
--- NOTE | 2025-02-19 12:48 | P.HPCAR ---
History of Present Illness This is Dr. Atkins dictating an H/P on this patient The patient was interviewed and examined IMPRESSION / ASSESSMENT: PVCs, almost 18% PVC burden Mild cardiomyopathy 45% by echo and cardiac MRI Coronary artery disease, status post stenting to the LAD Hypertension Left ventricular and right ventricular enlargement Permanent atrial fibrillation cardiac MRI does not show any evidence for scar in the inferior wall. There is anterior wall delayed enhancement and a small area PLAN: EP study and ablation of nonsustained VT/PVCs Patient was asked to continue Xarelto for possible transseptal/transmitral approach HPI Patient continues to have frequent PVCs The seem to be originating from the inferior wall of the left ventricle and he also has persistent atrial fibrillation with a controlled ventricular response, permanent There is 1 predominant PVC morphology History of circumferential pericardial effusion that was deemed to be postviral in 2020 Reduced LV systolic function No recent syncope no chest pain Text ROS: No fever chills or rigors, no cough, phlegm or expectoration, no nausea, vomiting or diarrhea, no hematuria, dysuria, no musculoskeletal complaints, no strokes or seizures, no skin lesions. EXAMINATION: Blood pressure 138/80 mmHg pulse rate in the 80s afebrile Breath sounds are clear Heart sounds S1-S2 are normal but irregular Abdomen soft Extremities warm no edema No JVD REVIEW OF LABS, ECG & MEDICAL DATA Normal white count, hemoglobin 14.7, platelet count 213,000 Normal electrolytes Normal renal function Normal TSH 1.3 Physical Exam Vitals: Vital Signs Temp Pulse Resp BP Pulse Ox 02/19/25 10:08 98.3 F 89 16 138/80 98 Intake and Output 02/18/25 02/19/25 02/19/25 22:59 06:59 14:59 Intake Total 0 Balance 0 Intake: IV 0 Other: Weight 103.7 kg Past Medical History Past Medical History: Atrial Fibrillation, Hyperlipidemia, Hypertension Additional Past Medical History / Comment(s): was having black stools intermittiently History of Any Multi-Drug Resistant Organisms: None Reported Past Surgical History: Heart Catheterization With Stent, Orthopedic Surgery Additional Past Surgical History / Comment(s): R shoulder, R arm, R wrist Past Anesthesia/Blood Transfusion Reactions: No Reported Reaction Date of Last Stent Placement:: 01/11/25 Smoking Status: Former smoker - Past Family History Mother Family Medical History: No Reported History Physical Examination Vital Signs Temp Pulse Resp BP Pulse Ox 02/19/25 10:08 98.3 F 89 16 138/80 98 Intake and Output 02/18/25 02/19/25 02/19/25 22:59 06:59 14:59 Intake Total 0 Balance 0 Intake: IV 0 Other: Weight 103.7 kg Results 02/19/25 10:05 02/19/25 10:05 CBC 02/19/25 Range/Units 10:05 WBC 9.36 (4.50-10.00) 10*3/uL RBC 4.57 (4.40-5.60) 10*6/uL Hgb 14.7 (13.0-17.0) g/dL Hct 42.0 (39.6-50.0) % Plt Count 213 (140-440) 10*3/uL Comprehensive Metabolic Panel 02/19/25 Range/Units 10:05 Sodium 138 (137-145) mmol/L Potassium 4.4 (3.5-5.1) mmol/L Chloride 104 (98-107) mmol/L Carbon Dioxide 23 (22-30) mmol/L BUN 16 (9-20) mg/dL Creatinine 1.02 (0.66-1.25) mg/dL Glucose 96 (74-99) mg/dL Calcium 10.0 (8.4-10.2) mg/dL Current Medications Generic Name Dose Route Start Last Admin Trade Name Freq PRN Reason Stop Dose Admin Sodium Chloride 1,000 mls @ 20 mls/hr 02/19/25 05:41 02/19/25 10:08 Saline 0.9% IV 03/21/25 05:40 20 mls/hr .Q24H FERN Administration Intake and Output 02/18/25 02/19/25 02/19/25 22:59 06:59 14:59 Intake Total 0 Balance 0 Intake: IV 0 Other: Weight 103.7 kg Patient Weight 02/20/25 06:59 Weight 103.7 kg 02/19/25 10:05 02/19/25 10:05
[2025-02-19] MEDS: HEPARIN SODIUM (1,000 UNIT/ML) 1,000 UNIT in SODIUM CHLORIDE 0.9% 1,000 ML IRRIGATION ONE (12:57)
[2025-02-19] MEDS: LIDOCAINE 1% INJ 10MG/ML (20 ML MDV) SQ ONE (12:59)
[2025-02-19] MEDS: IOPAMIDOL-370 100ML BTL INJ ONE (13:13)
[2025-02-19] MEDS: HEPARIN SOD,PORK IN 0.45% NACL 25,000 UNIT in 0.45% NACL 1 250ML.BAG IV ONE (13:15)
--- NOTE | 2025-02-19 15:23 | P.EPPROC ---
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 There was a small area of delayed enhancement in the anterior wall of the LV Final diagnosis Focal PVC from the inferior wall of the left ventricle Successful mapping of the left ventricle and ablation of the focal VT Complete ielimination of the PVC focus and noninducibility thereafter Details Patient was brought to the EP lab in a fasting state. Written informed consent was obtained prior to the procedure. 2 venous sheaths were placed in the left femoral vein and femoral artery catheter was placed in the right femoral artery for hemodynamic monitoring and later mapping of the left ventricular ablation Coronary sinus catheter was placed in the His bundle area and right atrium and coronary sinus as well as in the right ventricle later Patient was in atrial fibrillation Intracardiac echo was placed which showed left ventricular ejection fraction mildly reduced and thickened pericardium with chronic effusion/exudative effusion especially at the base of the LV Patient was experiencing PVCs which had an rSr' in lead V1 negative QRSs in the inferior leads especially aVF and lead III. It was deep in aVF. Notched onset in the inferior leads. MDI of around 50% Anatomic mapping of the aortic root, aortic cusp, left ventricle, mitral valve, tricuspid valve and inferior papillary muscle of the left ventricle was performed A Penta ray catheter was placed in the left ventricle retrogradely. There was a lot of ectopy as a result of the Penta ray catheter and therefore the movements were very slow and deliberate. This required extra time The earliest activation site was mapped with the Penta ray catheter Later an RF ablation catheter was placed and further detailed mapping of the ventricle was performed mapping and pacing of the left ventricle performed At the site of earliest bipolar electrograms and excellent early unipolar signal, RF ablation was performed and within 10 seconds there was complete illumination of the PVC. 9 RF ablations were performed around this successful site Good contact force, power used up to 35 W Good impedance drop for all lesions delivered Following that EP study was performed with burst stimulation and after double extrastimuli. High-dose Isopril infused. No PVCs. No further VT induced All sheaths and catheters were removed heparin was stopped hemostasis was assured with closure devices Patient tolerated the procedure well without any acute complications Intracardiac echo did not reveal any changes at the end of the procedure plan continue antiplatelet therapy and Xarelto Continue other cardiac medications as before
--- NOTE | 2025-02-19 15:25 | P.PRLE ---
RE: Jeremi Palacio Dear Dr. Pricila Blood underwent successful mapping and ablation of the left ventricular VT/PVC focus. The focus was rendered noninducible at the end of the procedure He will continue all his cardiac medications unchanged and will follow-up with you and Dr. Guajardo as before Thank you for entrusting me with the care of the patient Warm regards Sincerely Eduard Atkins
[2025-02-19] MEDS: ACETAMINOPHEN IV (For NPO) 1,000 MG in EMPTY BAG 1 BAG IVPB STA (16:23)
--- NOTE | 2025-02-19 18:12 | P.EPPROC ---
- EP Procedure Note Electrophysiology Procedure Note: Diagnosis Symptomatic bradycardia, unprovoked, no triggering factors sudden bradycardia with pauses with syncope, recurrent, documented on loop implant underlying right bundle branch block pattern Procedure Dual-chamber pacemaker implantation with conduction system pacing (left bundle pacing) Left upper extremity venogram Details Patient was brought to the EP lab in a fasting state. Written informed consent was obtained prior to the procedure. Conscious sedation provided by [employer]. IV antibiotics administered. Local anesthesia administered. A 4 cm incision made in the pectoral area. Subfascial pocket made. Venous accesses obtained Venous sheaths placed. Leads placed in the right heart. 2 sets of pacing cables were used; one for backup temporary pacing and the other for assessment of current of injury and signal analysis. A 52 cm atrial pacing lead was first positioned in the RV apex for temporary pacing during mapping and conduction system pacing Thresholds were interrogated and backup high output pacing was provided This atrial lead was then removed from the right ventricle and later positioned in the right atrial appendage and the permanent lead A deflected sheath was prepped. A coronary sinus decapolar catheter was placed within this sheath. The catheter along with the sheath was then passed into the right heart, the catheter was prolapsed across the tricuspid valve, into the right ventricle and then further into the right ventricular outflow tract across the pulmonic valve into the pulmonary artery. This sheath was slid over this decapolar catheter into the RVOT. Thereafter the catheter last sheath assembly was withdrawn from the RVOT along the septum to the mid septal area. The sheath was appropriately to to map the right ventricular aspect of the septum. The decapolar catheter was withdrawn, the sheath flushed again and the screw-in paci ng lead placed within the sheath. Further detailed unipolar pace-mapping of the septum was performed and once the appropriate based morphology was obtained on lead V1, the lead was screwed into the septum. The lead was screwed in 4-5 returns at a time while monitoring the current of injury, the pacing impedance changes and the paced QRS morphology. The stimulus to peak of V6 QRS was measured at each step. Once a QR or rSR pattern of paced QRS in lead V1 was obtained, a left bundle signal was sought. Impedance was measured and thresholds were measured. An impedance drop of 100-200 ohms but above 550 ohms was targeted along with an unchanged vector of the current of injury signal. The final positioning was based on the QRS morphology in lead V1 and a short stimulus to peak of the V6 QRS of less than 90 ms. The sheath was withdrawn, stability of the pacing lead deep in the septum was confirmed on BOYD and KYRGYZ views and the sheath was slipped and an adequate heel was provided for the lead. Unipolar and bipolar electrogram morphology obtained Atrial lead positioned in the right atrial appendage. Sensing, thresholds and impedances measured following positioning and securing the lead in the right atrial appendage Left bundle lead parameters model #3830, 69 cm in length Medtronic lead. R waves 10 mV, pacing impedance unipolar 704 ohms, unipolar pacing threshold 0.3 V at 0.4 ms. QR pattern on V1, stimulus-peak of V6 is 73 ms, paced QRS width of 166 ms right bundle branch block type Atrial lead parameters 58 cm Medtronic model #5076. Patient in atrial fibrillation. Fibrillatory waves 2.4 mV, pacing impedance 646 ohms Device cook pie: Medtronic [place] XT DR MRI Dual-chamber pacemaker device connected to the leads and placed in the subfascial pocket Patient tolerated the procedure well without acute complications Pacemaker programming AAI-DDD, MVP, 60 bpm this is a long procedure for mapping the left bundle. Ultimately excellent result obtained
[2025-02-19] MEDS: RIVAROXABAN 20 MG TAB PO SCH (18:31)
[2025-02-19] MEDS: ATORVASTATIN 40 MG TAB PO SCH (18:31)
[2025-02-20] MEDS: ACETAMINOPHEN TAB 325 MG TAB PO STA (05:24)
[2025-02-20] MEDS: PANTOPRAZOLE 40 MG TABLET PO SCH (06:36)
[2025-02-20 07:46] VITALS: BP 131/81; PULSE 77; TEMP 98.3
[2025-02-20] MEDS: CLOPIDOGREL 75 MG TAB PO SCH (08:19)
[2025-02-20] MEDS: amLODIPine 10 MG TAB PO SCH (08:19)
[2025-02-20 10:40] VITALS: RESP 17
--- NOTE | 2025-02-20 11:43 | P.DS ---
Providers Attending physician: Eduard Atkins Primary care physician: [facility] Course: Is doing well. He is walking around the room. No chest pain dizziness or lightheadedness Groins have healed well no hematoma no swelling No dizziness no lightheadedness Blood pressure is normal heart rhythm is regular Occasional nonsustained VT, very different in morphology from his PVCs. This was just a 5 beat run, isolated event and asymptomatic graph blood pressure 128/87 mmHg pulse rate in the 70s afebrile Breath sounds are clear no rhonchi no crackles Heart sounds S1-S2 are normal no murmurs or gallops or rub impression Frequent PVCs from inferior wall of the left ventricle, high PVC burden of 18% Status post successful ablation and elimination of PVCs Mild cardiomyopathy Coronary artery status post stenting to the LAD A very small area of delayed enhancement, subendocardial but in the anterior wall, not in the region of the inferior wall where the PVCs were originating from Plan Continue current medications during simvastatin 40 mg daily Plavix rivaroxaban amlodipine Follow-up with Dr. Alas in 7 to 10 days Discharge home. Patient is stable Plan - Discharge Summary Discharge Rx Participant: Yes New Discharge Prescriptions: New Simvastatin [Zocor] 40 mg PO HS #90 tab Continue Rivaroxaban [Xarelto] 20 mg PO DAILY amLODIPine BESYLATE 10 mg PO DAILY Omeprazole [PriLOSEC] 20 mg PO DAILY Nitroglycerin Sl Tabs [Nitrostat] 0.4 mg SUBLINGUAL Q5M PRN #25 tab PRN Reason: Chest Pain Clopidogrel [Plavix] 75 mg PO DAILY #90 tab Discharge Medication List Omeprazole [PriLOSEC] 20 mg PO DAILY 10/14/21 [History] Rivaroxaban [Xarelto] 20 mg PO DAILY 10/14/21 [History] amLODIPine BESYLATE 10 mg PO DAILY 10/14/21 [History] Clopidogrel [Plavix] 75 mg PO DAILY #90 tab 01/12/25 [Rx] Nitroglycerin Sl Tabs [Nitrostat] 0.4 mg SUBLINGUAL Q5M PRN #25 tab 01/12/25 [Rx] Simvastatin [Zocor] 40 mg PO HS #90 tab 02/19/25 [Rx] Follow up Appointment(s)/Referral(s): Josh Alas MD [STAFF PHYSICIAN] - 02/27/25 9:30 am Patient Instructions/Handouts: Cardiac Ablation (GEN) Activity/Diet/Wound Care/Special Instructions: Post EP study - Ablation instructions 1. Keep access sites dry for 2 days. 2. No heavy lifting or straining for 2 days. 3. Avoid bending the hips repeatedly for 2 days. 4. You may go up and down stairs slowly 5. If you have had an ablation for atrial fibrillation or atrial flutter and are on a blood thinner, do not stop the blood thinner even temporarily for 3 months post ablation Call if the following is noted 1. Bleeding, increasing swelling or pain at the access sites. 2. Increasing chest discomfort, especially upon taking a deep breath. 3. Increasing shortness of breath, at rest or with exertion. 4. Undue cough / phlegm 5. Difficulty or pain while swallowing. 6. Pain or change in color in the extremities. 7. Fever, chills, rigors. 8. Increasing headache or neurologic symptoms. 9. Dizziness, fainting, palpitations Continue medications including Xarelto and Plavix
== END 2025-02-20 12:26 | disposition home or self-care (01) ==
LOC: CATHEP 09:23 → 6NMEDSUR 14:49 → CATHEP 02-20 12:26
PROVIDERS: ATTEND Internal Medicine Clinical Cardiac Electrophysiology
DX: I49.3 Ventricular premature depolarization (principal); I48.21 Permanent atrial fibrillation; I25.10 Atherosclerotic heart disease of native coronary artery without angina pectoris; I10 Essential (primary) hypertension; E78.5 Hyperlipidemia, unspecified; I42.9 Cardiomyopathy, unspecified; Z79.01 Long term (current) use of anticoagulants; Z79.02 Long term (current) use of antithrombotics/antiplatelets; Z79.899 Other long term (current) drug therapy; Z87.891 Personal history of nicotine dependence; Z95.5 Presence of coronary angioplasty implant and graft
CPT/HCPCS: 93623; 93662; 93654; 86900; 86901; 80048; 84443; 85025; 86850; C1760 ×2; C1894; C1769; C1730; C1731; C1759; C1732; J2003; J1644 ×2; J0131; Q9967